=== PATIENT | male | born 1995 | race Caucasian/White ===

== ENCOUNTER 2017-03-25 08:09 | Inpatient (IN) | payer OTHER ==
[~2017-03-25] VITALS: Ht 190.5 cm; Wt 90.7 kg
[~2017-03-25 08:09] MED LIST: ABILIFY5 M1 PO; APAP/HYDROCODON1 T13 PO; COL100 PO; CYMBALTA60 M1 PO; TENEX2 MG PO
--- NOTE | 2017-03-25 08:30 | NUR ---
DR CABALLERO AT BEDSIDE FOR MSE
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
--- NOTE | 2017-03-25 08:59 | NUR ---
PT SIGNED CONSENT TO OBTAIN MEDICAL RECORDS FROM [facility]
--- NOTE | 2017-03-25 09:07 | NUR ---
PT TAKEN TO RADIOLOGY BY WHEELCHAIR FOR XR
--- NOTE | 2017-03-25 09:38 | NUR ---
R/T AT BEDSIDE FOR ABG
--- NOTE | 2017-03-25 09:40 | NUR ---
LAB AT BEDSIDE
[2017-03-25 10:00] LABS: BASOPHIL % 0.3 % (0-2); PLATELET COUNT 211 x10^3mcL (130-400); RED CELL DISTRIBUTION WIDTH 14.1 % (11.5-14.5)
[2017-03-25 10:19] LABS: CALCIUM 8.8 mg/dL (8.5-10.1); CARBON DIOXIDE 31.1 mmol/L (21-32); CHLORIDE SERUM 105 mmol/L (98-107); CREATININE SERUM 0.8 mg/dL (0.7-1.3); GFR1 > 60 mL/min; GLUCOSE SERUM 90 mg/dL (74-106); SODIUM SERUM 140 mmol/L (136-145)
--- NOTE | 2017-03-25 10:35 | NUR ---
PT RESTING IN BED. MEDICATED FOR PAIN PER ORDER. NAD NOTED. VS WNL
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
[2017-03-25 11:02] LABS: MAGNESIUM 1.7 mg/dL (1.8-2.4); PHOSPHOROUS 3.5 mg/dL (2.5-4.9)
[2017-03-25 11:03] LABS: CHOLESTEROL/HDL RATIO 2.6
--- NOTE | 2017-03-25 11:17 | NUR ---
REPORT GIVEN TO LUKE FELIX IN [facility] FOR CONTINUITY OF CARE. DR RITU HEREDIA'S PT TO MOVE TO [facility]
--- NOTE | 2017-03-25 11:25 | NUR ---
PT IN STABLE CONDITION. RESP EVEN AND UNLABORED, RA. VS STABLE AND WNL. NAD NOTED. REPORTS DECREASE IN PAIN TO 4/10
[2017-03-25 11:30] LABS: FREE T4 1.15 ng/dL (0.76-1.46); FREE THYROXINE INDEX 3.2 ug/dL (1.4-4.5); T3 TOTAL 1.31 ng/mL; T4(THYROXINE) 9.3 ug/dL (4.7-13.3)
--- NOTE | 2017-03-25 11:45 | NUR ---
PT WAS BROUGHT UP FROM ER, VIA GURENY. AA/O X4, BREATHING EVEN AND UNLABORED ON RA. C/O RIGHT SIDED BACK PAIN, MEDICATED PER EMAR.TELE 43 SR. VS STABLE. DENIES ANY CHEST PAIN OR PRESSURE AT THIS TIME. BOWEL SOUNDS ACTIVE IN ALL QUADS. LAST BM 03/24, SOFT. IV TO THE LAC INTACT AND PATENT. CALL LIGHT IN REACH, BED IN LOW POSITION. WILL CONTINUE PLAN OF CARE.
--- NOTE | 2017-03-25 13:00 | NUR ---
PT STATED THE NORCO DID HELP RELIEVE HIS LEFT RIB PAIN. IS NOW LAYING IN BED TALKING ON THE PHONE WITH HIS MOTHER. BREATHING EVEN AND UNLABORED ON RA. DID TOLERATE 100% OF HIS LUNCH. CALL LIGHT IN REACH. WILL CONTINUE PLAN OF CARE.
[2017-03-25 13:07] VITALS: BP 116/48
--- NOTE | 2017-03-25 13:15 | NUR ---
PT C/O BACK PAIN. MEDICATED PER EMAR.
--- NOTE | 2017-03-25 16:45 | NUR ---
PT WAS C/O FEELING HUNRRY. GAVE PT A SANDWHICH, PUDDING AND SPRITE. DENIES ANY DISCOMFORT AT THIS TIME.
[2017-03-25 16:56] VITALS: BP 102/45
[2017-03-25 17:43] LABS: microscopic required? NO
[2017-03-25 17:59] LABS: urine erythrocyte NEGATIVE (NEGATIVE)
[2017-03-25 18:04] LABS: AMPHETAMINE QUAL UR NONE DETECTED (NEG <=1000)
--- NOTE | 2017-03-25 18:29 | NUR ---
PT IS LAYING IN BED WATCHING TV. NO ACUTE CHANGES NOTED. DENIES ANY CHEST PAIN OR PRESSURE AT THIS TIME. BREATHING EVEN AND UNLABORED ON RA. NO RESP DISTRESS OR SOB NOTED. IV INTACT AND PATENT TO LAC. WILL ENDORSE PT TO INCOMING RN.
--- NOTE | 2017-03-25 19:38 | NUR ---
PT IS AWAKE AND ORIENTED X4. PT DENIES [place] OR DIZZINESS AT THIS TIME. PT DENIES CHEST PAIN OR PRSESURE. PT ON TELE#43 SHOWING NSR ON THE MONITOR. PT HAS PALPABLE PULSES BILAT ALL EXTREMITIES. SCDS IN PLACE. NO SIGNS OF EDEMA. PT HAS CLEAR LUNG SOUNDS. RESPIRATIONS EVEN AND UNLABORED ON ROOM AIR. PT DENIES SOB. PT HAS ACTIVE BOWEL SOUNDS. PT DENIES ABD PAIN AND N/V AT THIS TIME. PT ABD FLAT, SOFT, AND NONTENDER. PT VOIDS FREELY ON OWN. PT AMUBLATORY ON OWN. PT SKIN CDI. IV FLUIDS NS RUNNING AT 100 ML/HR TO LAC. IV PATENT WITH NO SIGNS OF INFILTRATION. PT DENIES PAIN OR DISCOMFORT AT THIS TIME. NO SIGNS OF DISTRESS. WILL CONTINUE TO MONITOR.
[2017-03-25 20:39] VITALS: BP 114/60
--- NOTE | 2017-03-25 23:47 | NUR ---
PT REMAINS CALM AND COOPERATIVE AND KEEPING BUSY BY DRAWING. PT DENIES PAIN OR DISCOMFORT AT THIS TIME. WILL CONTINUE TO MONITOR.
--- NOTE | 2017-03-26 02:09 | NUR ---
PT REMAINSI N BED AT THIS TIME WITH EYES CLOSED. NO SIGNS OF DISTRESS. WILL CONTINUE TO MONITOR.
[2017-03-26 05:41] VITALS: BP 101/45
--- NOTE | 2017-03-26 06:07 | NUR ---
PT DENIES [place] OR DIZZINESS. PT DENIES CHEST PAIN OR PRESSURE. PT DENIES SOB. RESPIRATIONS EVEN AND UNLABORED ON ROOM AIR. PT SLEPT THROUGHOUT THE EVENING. PT DENEIS PAIN OR DISCOMFORT. ALL PT NEEDS MET. NO SIGNS OF DISTRESS. WILL ENDORSE TO DAY NURSE.
[2017-03-26 06:17] LABS: BASOPHIL % 0.5 % (0-2); PLATELET COUNT 190 x10^3mcL (130-400); RED CELL DISTRIBUTION WIDTH 14.2 % (11.5-14.5)
[2017-03-26 06:48] LABS: CALCIUM 8.5 mg/dL (8.5-10.1); CARBON DIOXIDE 28.8 mmol/L (21-32); CHLORIDE SERUM 107 mmol/L (98-107); CREATININE SERUM 0.8 mg/dL (0.7-1.3); GFR1 > 60 mL/min; GLUCOSE SERUM 83 mg/dL (74-106); MAGNESIUM 2.3 mg/dL (1.8-2.4); PHOSPHOROUS 3.9 mg/dL (2.5-4.9); SODIUM SERUM 142 mmol/L (136-145)
--- NOTE | 2017-03-26 07:23 | NUR ---
PT AWAKE, ALERT, ORIENTED. STATES HAS SOME LEFT SHOULDER PAIN RATED 6/10. DENIES CHEST PAIN, PRESSURE, SOB. HRRR. LUNG SOUNDS CLEAR TO AUSCULTATION IN ALL LOBES. PULSES STRONG THROUGHOUT ALL EXTREMITIES. BOWEL SOUNDS ACTIVE X 4, SOFT ROUND NONTENDER. SKIN CDI THROUGHOUT. IV SITE REMAINS CDI AND PATENT. BED IN LOWEST POSITION, CALL LIGHT WITHIN REACH, 2 RAILS UP.
[2017-03-26 08:45] VITALS: BP 97/47
--- NOTE | 2017-03-26 08:59 | NUR ---
PT SLEEPING. RESPIRATIONS NOTED. BED IN LOWEST POSITION, CALL LIGHT WITHIN REACH, 2 RAILS UP.
[2017-03-26 09:56] VITALS: BP 90/41
--- NOTE | 2017-03-26 09:57 | NUR ---
PT SLEEPING, RESPIRATIONS NOTED. COMPLETED 70% OF MEAL. IN NO APPARENT DISTRESS. BED IN LOWEST POSITION, CALL LIGHT WITHIN REACH, 2 RAILS UP.
--- NOTE | 2017-03-26 11:45 | NUR ---
PT IS AWAKE, ALERT. DENIES PAIN AT THIS TIME, BED IN LOWEST POSITION, CALL LIGHT WITHIN REACH, 2 RAILS UP.
[2017-03-26 12:00] VITALS: BP 90/41
[2017-03-26] MEDS ORDERED: MOT800 PO (12:25)
--- NOTE | 2017-03-26 12:38 | NUR ---
PT SITTING IN CHAIR WATCHING TV, IN NO APPARENT DISTRESS.
[2017-03-26 13:30] VITALS: BP 93/44
--- NOTE | 2017-03-26 13:35 | NUR ---
DISCHARGE INFORMATION PROVIDED TO PATIENT, PATIENT VERBALIZES UNDERSTANDING. IV CATHETER DC'D, CATHETER TIP INTACT. PT AWAITING RIDE FROM FAMILY.
--- NOTE | 2017-03-27 08:01 | NUR ---
ECHO NOT DONE PT. DISCHARGED
== END 2017-03-26 13:47 | disposition home or self-care (01) | DRG 203 ==
LOC: ED 08:09 → DU 10:16
PROVIDERS: Emergency Medicine; ADMIT Family Medicine Sports Medicine
DX: M94.0 Chondrocostal junction syndrome [Tietze] (principal); E83.42 Hypomagnesemia; F32.9 Major depressive disorder, single episode, unspecified; Z90.49 Acquired absence of other specified parts of digestive tract
CPT/HCPCS: 36600; 83880; 84439; J1885; J2405; J3010; J3475; J7030

== ENCOUNTER 2017-08-19 23:56 | Emergency (ER) | payer MEDICAID ==
[~2017-08-19] VITALS: Ht 190.5 cm; Wt 92.3 kg
[~2017-08-19 23:56] MED LIST changes: +MOT800 PO
[2017-08-20 01:07] LABS: CALCIUM 8.5 mg/dL (8.5-10.1); CARBON DIOXIDE 33.6 mmol/L (21-32); CHLORIDE SERUM 105 mmol/L (98-107); GFR1 > 60 mL/min; GLUCOSE SERUM 82 mg/dL (74-106); POTASSIUM SERUM 3.6 mmol/L (3.5-5.1); SODIUM SERUM 137 mmol/L (136-145)
[2017-08-20 01:36] VITALS: BP 128/68
[2017-08-20 01:47] LABS: BASOPHIL % 0.7 % (0-2); PLATELET COUNT 194 x10^3mcL (130-400); RED CELL DISTRIBUTION WIDTH 13.5 % (11.5-14.5)
== END 2017-08-20 01:58 | disposition home or self-care (01) ==
LOC: ED 23:56
PROVIDERS: Emergency Medicine
DX: R51 Headache (principal); R42 Dizziness and giddiness; R20.0 Anesthesia of skin; M79.1 Myalgia; R63.0 Anorexia
CPT/HCPCS: 36415